=== PATIENT | female | born 1985 | race Two or more races ===

== ENCOUNTER 2024-01-10 21:32 | Emergency (ER) | payer MEDICAID ==
[~2024-01-10] VITALS: Ht 154.9 cm; Wt 93.7 kg
[2024-01-10 21:34] VITALS: BP 139/85; RESP 20; O2SAT 98
[2024-01-10 21:41] VITALS: PULSE 128
--- NOTE | 2024-01-10 21:48 | ED.PDOC ---
HPI Comments 38-year-old female who came to ER for chest pains. Patient states at about 7:30 p.m., she was walking when she experienced sudden onset left-sided chest pains, described as aching and nonradiating. Chest pain will subside spontaneously, and at this time of care patient has no more pain. Patient is tachycardic at 120s upon arrival. Chief Complaint: Chest Pain Time Seen by MD: 21:48 Reviewed Notes: Nurses Notes Allergies: Coded Allergies: NO KNOWN ALLERGIES (Unverified , 01/10/24) Home Meds Active Scripts Oseltamivir Phosphate (Tamiflu) 75 Mg Cap, 1 CAP PO BID for 5 Days, #10 CAP Prov:PHIL BACK MD 01/11/24 Azithromycin (Azithromycin) 500 Mg Tab, 1 TAB PO DAILY for 5 Days, #5 TAB Prov:PHIL BACK MD 01/11/24 Information Source: Patient Mode of Arrival: Ambulatory Severity: Moderate Timing: Hours Duration: Since onset Prehospital treatment: None Location: Chest (L) Radiation: No Radiation Quality: Aching Onset: With Light Exertion Cardiac Risk Factors: None PE Risk Factors: None History of: None Associated Signs and Symptoms: None Past Medical History PAST MEDICAL HISTORY: Denies Surgical History: Denies all surgeries 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 Family History Family History: Reviewed,noncontributory to illness Social History Smoker: Non-Smoker Alcohol: Denies ETOH Use Drugs: Denies Drug Use Lives In: Home Constitutional: denies: chills, diaphoresis, fatigue, fever, malaise, sweats, weakness, others EENTM: denies: blurred vision, double vision, ear bleeding, ear discharge, ear drainage, ear pain, ear ringing, eye pain, eye redness, hearing loss, mouth pain, mouth swelling, nasal discharge, nose bleeding, nose congestion, nose pain, photophobia, tearing, throat pain, throat swelling, voice changes, others Respiratory: denies: cough, hemoptysis, orthopnea, SOB at rest, shortness of breath, SOB with excertion, stridor, wheezing, others Cardiovascular: reports: chest pain; denies: dizzy spells, diaphoresis, Dyspnea on exertion, edema, irregular heart beat, left arm pain, lightheadedness, palpitations, PND, syncope, others Gastrointestinal: denies: abdomen distended, abdominal pain, blood streaked bowels, constipated, diarrhea, dysphagia, difficulty swallowing, hematemesis, melena, nausea, poor appetite, poor fluid intake, rectal bleeding, rectal pain, vomiting, others Genitourinary: denies: abnormal vagina bleeding, burning, dyspareunia, dysuria, flank pain, frequency, hematuria, incontinence, pain, , vagina discharge, urgency, others Neurological: denies: dizziness, fainting, headache, left sided numbness, left sided weakness, numbness, paresthesia, pre-existing deficit, right sided numbness, right sided weakness, seizure, speech problems, tingling, tremors, weakness, others Musculoskeletal: denies: back pain, gout, joint pain, joint swelling, muscle pain, muscle stiffness, neck pain, others Integumetry: denies: bruises, change in color, change in hair/nails, dryness, laceration, lesions, lumps, rash, wounds, others Allergic/Immunocompromised: denies: Difficulty Healing, Frequent Infections, Hives, Itching, others Hematologic/Lymphatic: denies: anemia, blood clots, easy bleeding, easy bruising, swollen glands, others Endocrine: denies: excessive hunger, excessive sweating, excessive thirst, excessive urination, flushing, intolerance to cold, intolerance to heat, unexplained weight gain, unexplained weight loss, others Psychiatric: denies: anxiety, bipolar disorder, depression, hopeless, panic disorder, schizophrenia, sleepless, suicidal, others Physical Exam General Appearance: No Apparent Distress, Normal HEENT: Normal ENT Inspection, Pharynx Normal, TMs Normal Neck: Full Range of Motion, Non-Tender, Normal, Normal Inspection Respiratory: Chest Non-Tender, Lungs Clear, No Accessory Muscle Use, No Respiratory Distress, Normal Breath Sounds Cardiovascular: No Edema, No JVD, No Murmur, No Gallop, Normal Peripheral Pulses, Regular Rate/Rhythm Breast Exam: Deferred Gastrointestinal: No Organomegaly, Non Tender, No Pulsatile Mass, Normal Bowel Sounds, Soft Genitalia: Deferred Pelvic: Deferred Rectal: Deferred Extremities: No calf tenderness, Normal capillary refill, Normal inspection, Normal range of motion, Non-tender, No pedal edema Musculoskeletal : Apperance: Normal Neurologic: 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 Was a procedure done?: No CP Differential Dx Differential Diagnosis: Angina, Anxiety / Panic Attack, Hyperventilation, Sinus Tachycardia Differential Diagnosis: Angina, Chest Wall Pain, Costochondritis, Esophageal reflux/spasm, Gastritis, Myocardial Infarction X-Ray, Labs, Meds, VS Vital Signs Date Time Temp Pulse Resp B/P (MAP) Pulse Ox O2 Delivery O2 Flow Rate FiO2 01/11/24 02:18 98.1 98.1 01/10/24 22:57 98.1 01/10/24 21:57 101.3 01/10/24 21:41 128 01/10/24 21:34 101.3 127 20 139/85 (103) 98 Lab Test 01/10/24 21:49 01/10/24 21:39 Range/Units Urine Color Light-yellow Yellow Urine Clarity Clear Clear Urine pH 5.5 5.0-9.0 Urine Specific [place] 1.021 1.001-1.035 Urine Protein Negative Negative Urine Ketones Negative Negative Urine Blood Trace H Negative /uL Urine Nitrite Negative Negative Urine Bilirubin Negative Negative Urine Urobilinogen Normal Negative mg/dL Urine Leukocyte Esterase Negative Negative /uL Urine RBC 1 0 - 4 /hpf Urine WBC 1 0 - 5 /hpf Urine Squamous Epithelial Cells Few <5 /hpf Urine Bacteria Few H None Seen /hpf Urine Glucose Normal Normal mg/dL White Blood Count 10.5 4.4-10.8 10^3/uL Red Blood Count 4.67 4.0-5.20 10^6/uL Hemoglobin 13.6 12.2-16.2 g/dL Hematocrit 40.2 36.0-46.0 % Mean Corpuscular Volume 86.0 80.0-100.0 fL Mean Corpuscular Hemoglobin 29.1 28.0-32.0 pg Mean Corpuscular Hemoglobin Concent 33.9 32.0-36.0 g/dL Red Cell Distribution Width 12.9 11.8-14.3 % Platelet Count 201 140-450 10^3/uL Mean Platelet Volume 8.7 6.9-10.8 fL Neutrophils (%) (Auto) 77.8 37.0-80.0 % Lymphocytes (%) (Auto) 15.7 10.0-50.0 % Monocytes (%) (Auto) 5.5 0.0-12.0 % Eosinophils (%) (Auto) 0.4 0.0-7.0 % Basophils (%) (Auto) 0.6 0.0-2.0 % Neutrophils # (Auto) 8.1 1.6-8.6 10 ^3/uL Lymphocytes # (Auto) 1.6 0.4-5.4 10 ^3/uL Monocytes # (Auto) 0.6 0-1.3 10 ^3/uL Eosinophils # (Auto) 0 0-0.8 10 ^3/uL Basophils # (Auto) 0.1 0-0.2 10 ^3/uL Nucleated Red Blood Cells 0.1 % Prothrombin Time 10.7 9.3-11.8 sec Prothrombin Time INR 1.01 0.9-1.15 Activated Partial Thromboplast Time 25.1 24.5-34.5 SEC D-Dimer, Quantitative < 0.19 0.0-0.49 mg/L FEU Sodium Level 138 136-145 mmol/L Potassium Level 4.2 3.5-5.1 mmol/L Chloride Level 105 98-107 mmol/L Carbon Dioxide Level 25 20-31 mmol/L Anion Gap 8 5-15 Blood Urea Nitrogen 11 9-23 mg/dL Creatinine 0.70 0.550-1.02 mg/dL Glomerular Filtration Rate Calc 113 >90 mL/min BUN/Creatinine Ratio 15.7 10.0-20.0 Serum Glucose 101 74-106 mg/dL Calcium Level 10.2 8.7-10.4 mg/dL Magnesium Level 1.7 1.6-2.6 mg/dL Total Bilirubin 0.5 0.2-1.0 mg/dL Aspartate Amino Transferase (AST) 10 L 13-40 U/L Alanine Aminotransferase (ALT) 25 7-40 U/L Alkaline Phosphatase 74 46-116 U/L Troponin I High Sensitivity < 3 L </=34 ng/L B-Type Natriuretic Peptide 9.99 0-100 pg/mL Total Protein 8.5 H 5.7-8.2 g/dL Albumin 4.8 3.2-4.8 g/dL Thyroid Stimulating Hormone (TSH) 1.59 0.55-4.78 uIU/mL Free Thyroxine (T4) Calculated Pending Beta HCG, Quantitative 1.5 1.5-4.2 mIU/mL Current Medications Medications (Trade) Dose Ordered Sig/Jennifer Route Start Time Stop Time Status Last Admin Acetaminophen (Tylenol Tablet) 1,000 mg ONCE ONCE PO 01/10/24 22:00 01/10/24 22:01 DC 01/10/24 21:57 Time of 1ST Reevaluation: 21:45 Reevaluation 1ST: Unchanged Time of 2ND Reevaluation: 23:33 Reevaluation 2ND: Improved Patient Education/Counseling: Diagnosis, Treatment Family Education/Counseling: No Family Present Departure 1 Departure Time of Disposition: 23:40 Impression: Primary Impression: Fever Additional Impression: Pleuritic chest pain Disposition: HOME / SELF CARE / HOMELESS Condition: Stable e-Prescriptions Oseltamivir Phosphate (Tamiflu) 75 Mg Cap 1 CAP PO BID for 5 Days, #10 CAP Prov: PHIL BACK MD 01/11/24 Azithromycin (Azithromycin) 500 Mg Tab 1 TAB PO DAILY for 5 Days, #5 TAB Prov: PHIL BACK MD 01/11/24 Discharged With: Self Critical Care Note Critical Care Time?: No Stability Stability form required: No Heart Score Heart Score: Heart Score Response (Comments) Value History Slightly Suspicious 0 EKG Repolarization Disturb 1 Age <45 0 Risk Factors No known risk factors 0 Troponin Normal limit 0 Total 1 I personally scribed for PHIL BACK MD ([email or web address]) on 01/10/24 at 21:48. Electronically submitted by Raymond Monahan ([email or web address]). PHIL BACK MD Jan 10, 2024 21:48
[2024-01-10 21:54] LABS: Basophils # (auto) 0.1 10 ^3/uL (0-0.2); Basophils % (auto) 0.6 % (0.0-2.0); Eosinophils # (auto) 0 10 ^3/uL (0-0.8); Eosinophils % (auto) 0.4 % (0.0-7.0); Hematocrit 40.2 % (36.0-46.0); Hemoglobin 13.6 g/dL (12.2-16.2); Lymphocytes # (auto) 1.6 10 ^3/uL (0.4-5.4); Lymphocytes % (auto) 15.7 % (10.0-50.0); Mean Corpuscular Hemoglobin 29.1 pg (28.0-32.0); Mean Corpuscular Hgb Conc. 33.9 g/dL (32.0-36.0); Monocytes # (auto) 0.6 10 ^3/uL (0-1.3); Monocytes % (auto) 5.5 % (0.0-12.0); Neutrophils # (auto) 8.1 10 ^3/uL (1.6-8.6); Neutrophils % (auto) 77.8 % (37.0-80.0); Nucleated Red Blood Cells % 0.1 %; Platelet Count (auto) 201 10^3/uL (140-450); Red Blood Cells 4.67 10^6/uL (4.0-5.20); Red Cell Distribution Width 12.9 % (11.8-14.3); White Blood Cell 10.5 10^3/uL (4.4-10.8)
[2024-01-10] MEDS: ACETAMINOPHEN 500 MG TAB or CAP PO ONE (21:57)
[2024-01-10 22:10] LABS: INR 1.01 (0.9-1.15); Partial Thromboplastin Time 25.1 SEC (24.5-34.5); Prothrombin Time 10.7 sec (9.3-11.8)
[2024-01-10 22:18] LABS: Alanine Aminotransferase 25 U/L (7-40); Albumin 4.8 g/dL (3.2-4.8); Alkaline Phosphatase 74 U/L (46-116); Anion Gap 8 (5-15); Aspartate Aminotransferase 10 U/L (13-40); BUN/Creatinine Ratio 15.7 (10.0-20.0); Bilirubin, Total 0.5 mg/dL (0.2-1.0); Blood Urea Nitrogen 11 mg/dL (9-23); Calcium 10.2 mg/dL (8.7-10.4); Carbon Dioxide 25 mmol/L (20-31); Chloride 105 mmol/L (98-107); Glucose 101 mg/dL (74-106); Magnesium 1.7 mg/dL (1.6-2.6); Potassium 4.2 mmol/L (3.5-5.1); Sodium 138 mmol/L (136-145); Total Protein 8.5 g/dL (5.7-8.2)
[2024-01-10 23:03] LABS: Urine Bacteria FEW /hpf (None Seen); Urine Blood TRACE /uL (Negative); Urine Clarity Clear (Clear); Urine Color Light-Yellow (Yellow); Urine Protein, UAD Negative (Negative); Urine Specific Gravity 1.021 (1.001-1.035); Urine Urobilinogen Normal (Negative); Urine WBC 1 /hpf (0 - 5); Urine pH 5.5 (5.0-9.0)
--- NOTE | 2024-01-10 23:48 | DVH ---
CHEST RADIOGRAPH Indication: chest pain, fever Technique: Single frontal view of the chest was obtained COMPARISON: None FINDINGS: Lines and Tubes: None Lungs: Bibasilar linear opacities may reflect atelectasis or mild pneumonia. Pleura: No effusion. No pneumothorax. Cardiomediastinal contours: Unremarkable Bones: Unremarkable IMPRESSION: 1. Basilar linear opacities may reflect atelectasis or mild pneumonia.
[2024-01-11] MEDS ORDERED: OSEL75CA5 PO (01:52)
[2024-01-11] MEDS ORDERED: AZIT500T66 PO (01:52)
[2024-01-11 02:18] VITALS: TEMP 98.1
--- NOTE | 2024-01-12 09:49 | ECG ---
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
== END 2024-01-11 02:18 | disposition home or self-care (01) ==
LOC: ER 21:32
DX: R07.81 Pleurodynia (principal); R10.2 Pelvic and perineal pain; R50.9 Fever, unspecified; R00.0 Tachycardia, unspecified; Z79.899 Other long term (current) drug therapy
CPT/HCPCS: 36415; 71045; 80053; 81001; 83735; 83880; 84439; 84443; 84484; 84702; 85025; 85379; 85610; 85730; 93005